=== PATIENT | female | born 1985 | race Caucasian/White ===

== ENCOUNTER 2019-03-18 14:01 | Emergency (ER) | payer MEDICARE ==
[~2019-03-18] VITALS: Ht 142.2 cm; Wt 94.6 kg
--- NOTE | 2019-03-18 14:10 | NUR ---
Marla norton in [facility] - 03/18/19 at 1534 by [email or web address] LEFT WITHOUT BEING SEEN.
[2019-03-18 14:19] VITALS: BP 138/111
--- NOTE | 2019-03-18 14:26 | NUR ---
33 y female bib family c/o non-productive cough, right ear pain 10/10, sore throat x 5 days. pt states it hurts to swallow. lungs clear bilaterally. +redness in back of throat. vss at this time. alert and oriented. bed is down, locked, bed rail x 1, ermd to see pt. med hx:dm, htn
--- NOTE | 2019-03-18 14:26 | NUR ---
Note undone in EDM - 03/18/19 at 1618 by [email or web address] 59 y female bib family c/o non-productive cough, right ear pain 08/18, sore throat x 5 days. pt states it hurts to swallow. lungs clear bilaterally. +redness in back of throat. vss at this time. alert and oriented. bed is down, locked, bed rail x 1, ermd to see pt. med hx:dm, htn
--- NOTE | 2019-03-18 15:14 | NUR ---
DR BANDA AT BEDSIDE FOR PT EVALUATION
--- NOTE | 2019-03-18 15:29 | NUR ---
STREP THROAT COLLECTED
[2019-03-18 16:10] VITALS: BP 132/85
--- NOTE | 2019-03-18 16:10 | NUR ---
Patient discharged with v/s stable. Written and verbal after care instructions given and explained. Patient alert, oriented and verbalized understanding of instructions. Ambulatory with steady gait. All questions addressed prior to discharge. ID band removed. Patient advised to follow up with PMD. Rx of MOTRIN 600MG given. Patient educated on indication of medication including possible reaction and side effects. Opportunity to ask questions provided and answered.
== END 2019-03-18 16:10 | disposition home or self-care (01) ==
LOC: MED 14:17
DX: J02.8 Acute pharyngitis due to other specified organisms (principal); B97.89 Other viral agents as the cause of diseases classified elsewhere; H92.01 Otalgia, right ear; J45.909 Unspecified asthma, uncomplicated; E10.9 Type 1 diabetes mellitus without complications; Z98.890 Other specified postprocedural states
CPT/HCPCS: 87081; 99283